=== PATIENT | male | born 1970 | race Caucasian/White ===

== ENCOUNTER 2018-11-05 04:05 | Emergency (ER) | payer BC ==
[~2018-11-05] VITALS: Ht 172.7 cm; Wt 79.4 kg
[2018-11-05] MEDS ORDERED: OMEP20CA11 PO (04:23)
[2018-11-05] MEDS ORDERED: MORPHINE SULFATE 2 MG/1 ML DISP.SYRIN IV ONE (05:00)
[2018-11-05] MEDS ORDERED: ONDANSETRON 4 MG/2 ML VIAL IV ONE (05:00)
[2018-11-05] MEDS ORDERED: IV NORMAL SALINE 1000 ML BAG IV ONE (05:00)
[2018-11-05] MEDS ORDERED: ONDANSETRON 4 MG/2 ML VIAL ONE (05:12)
[2018-11-05] MEDS ORDERED: MORPHINE SULFATE 4 MG/1 ML DISP.SYRIN ONE (05:12)
[2018-11-05 05:25] LABS: BASOPHILS % (AUTO) 0.3 % (0.0-2.0); EOSINOPHILS % (AUTO) 0.6 % (0.0-7.0); HEMATOCRIT 47.5 % (36.7-47.1); HEMOGLOBIN 16.3 g/dL (12.5-16.3); LYMPHOCYTES # (AUTO) 0.9 K/uL (20.0-40.0); LYMPHOCYTES % (AUTO) 12.7 % (20.5-51.5); MEAN CORPUSCULAR HEMOGLOBIN 31.5 uug (23.8-33.4); MEAN CORPUSCULAR HGB CONC 34 g/dL (32.5-36.3); MONOCYTES # (AUTO) 0.6 K/uL (2.0-10.0); MONOCYTES % (AUTO) 9.1 % (0.0-11.0); NEUTROPHILS # (AUTO) 5.2 K/uL (1.8-8.9); NEUTROPHILS % (AUTO) 77.3 % (38.5-71.5); PLATELET COUNT (AUTO) 121 K/uL (152-348); RED BLOOD CELL COUNT(AUTO) 5.16 MIL/uL (4.06-5.63); WHITE BLOOD COUNT (AUTO) 6.8 K/uL (3.6-10.2)
[2018-11-05 05:36] LABS: CREATININE 1.2 mg/dL (0.6-1.3); POTASSIUM 3.5 mmol/L (3.5-5.1)
[2018-11-05 05:42] LABS: BILIRUBIN,DIRECT 0.2 mg/dL (0.0-0.2); BILIRUBIN,TOTAL 1.1 mg/dL (0.2-1.0); TOTAL PROTEIN, SERUM 7.3 g/dL (6.4-8.2)
[2018-11-05] MEDS ORDERED: METRONIDAZOLE 500 MG TABLET PO ONE (06:30)
[2018-11-05] MEDS ORDERED: LEVOFLOXACIN 500 MG TABLET PO ONE (06:30)
--- NOTE | 2018-11-05 06:46 | NUR ---
Patient discharged to home in stable conditon. Written and verbal after care instructions given. Patient verbalizes understanding of instructions. Patient ambulated with stable gait.
[2018-11-05] MEDS ORDERED: METRONIDAZOLE 500 MG TABLET ONE (06:47)
[2018-11-05] MEDS ORDERED: LEVOFLOXACIN 500 MG TABLET ONE (06:47)
[2018-11-05 06:49] VITALS: BP 131/84
[2018-11-05 06:50] LABS: *BLOOD, URINE 1+ (NEGATIVE); *CLARITY,URINE CLEAR (CLEAR); *COLOR,URINE DARK YELLOW (YELLOW); *KETONES,URINE NEGATIVE (NEGATIVE); *UROBILINOGEN,URINE 0.2 E.U./dl (NORMAL); LEUKOCYTE ESTERASE ,URINE NEGATIVE (NEGATIVE); NITRITE, URINE NEGATIVE (NEGATIVE); PH,URINE 5.5 (5.0-8.0); UGLUCOSE NEGATIVE (NEGATIVE)
[2018-11-05 07:07] LABS: *BILIRUBIN,URIN NEGATIVE (NEGATIVE)
[2018-11-05 07:11] LABS: BACTERIA,URINE NONE SEEN /HPF (NONE SEEN); RBC,URINE 0-3 /HPF (0-3); SQUAMOUS EPITHELIAL CELL,UR FEW /HPF (NONE SEEN); WBC,URINE 0-3 /HPF (0-3)
[2018-11-05 07:12] LABS: MUCUS,URINE MODERATE /LPF (0-FEW)
== END 2018-11-05 06:55 | disposition home or self-care (01) ==
LOC: ER 04:13
DX: K52.9 Noninfective gastroenteritis and colitis, unspecified (principal); Z88.8 Allergy status to other drugs, medicaments and biological substances; Z79.899 Other long term (current) drug therapy
CPT/HCPCS: 36415; 74176; 80048; 80076; 81000; 81001; 85025; 93005; 96361; 96374; 96375; 99284; J2270; J2405; A4663; J7030